=== PATIENT | male | born 1960 ===

== ENCOUNTER 2018-06-20 13:17 | Emergency (ER) | payer OTHER, SELFPAY ==
[2018-06-20] VITALS (42 sets, daily range): BP systolic 138–161; BP diastolic 84–119; PULSE 79–104; RESP 12–53; TEMP 37; O2SAT 95–100
[2018-06-20] MEDS: Normal Saline 1,000 ML 1000 ML IV (13:34)
[2018-06-20 13:37] LABS: Abs Immature Grans 0.01 k/cumm (0.0-0.09); Absolute Basophil Count 0.03 k/cumm (0.0-0.2); Absolute Eosinophil Count 0.13 k/cumm (0.0-0.7); Absolute Lymphocyte Count 1.99 k/cumm (1.2-3.4); Absolute Monocyte Count 0.61 k/cumm (0.11-0.7); Absolute Neutrophil Count 6.17 k/cumm (1.2-6.7); Basophils % 0.3; Eosinophils % 1.5; HGB 13.6 g/dL (13.5-17.5); Immature Grans % 0.1; Lymphocytes % 22.3; Mean Corp. HGB Concentration 32.4 g/dL (32.0-36.0); Mean Corpuscular Hemoglobin 27.8 pg (27.0-33.0); Mean Corpuscular Volume 85.7 fL (80-95); Mean Platelet Volume 10.7 fL (8.0-11.0); Monocytes % 6.8; Platelet Count 138 x1000/uL (130-400); RBC Distribution Width 14.3 % (11.8-14.1); White Blood Cell Count 8.94 k/cumm (4.4-10.8)
[2018-06-20] MEDS: diphenhydrAMINE 50 MG/ML VIAL IVP (13:48)
[2018-06-20] MEDS: Famotidine 20 MG TAB PO (13:49)
[2018-06-20] MEDS: methylPREDNISolone SUCC 125 MG VIAL IVP (13:49)
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
[2018-06-20 13:54] LABS: PTT Activated 24.3 sec (21.0-31.4); Prothrombin Time 10.4 sec (9.3-11.0)
[2018-06-20 14:00] LABS: ALT 62 U/L (12-78); AST 58 U/L (15-37); Albumin 4.3 g/dL (3.4-5.0); Alkaline Phosphatase 227 U/L (46-116); Anion Gap 13.5 mmol/L (3-11); BUN 15 mg/dL (7-18); Bilirubin, Total 0.7 mg/dL (0.2-1.0); CO2 23.5 mmol/L (21.0-32.0); CREATININE 0.75 mg/dL (0.70-1.30); Calcium 8.9 mg/dL (8.5-10.1); Chloride 101 mmol/L (98-107); Glucose 110 mg/dL (70-100); NT-proBNP 60 pg/mL; Potassium 3.7 mmol/L (3.5-5.1); Sodium 138 mmol/L (136-145); Total Protein 8.2 g/dL (6.4-8.2)
[2018-06-20 14:05] LABS: Troponin I < 0.02 ng/mL (0.00-0.06)
[2018-06-20] MEDS: Omnipaque 350 MG/ML 100 ML BTL IJ (14:39)
--- NOTE | 2018-06-20 14:40 | DI.CT_ITS ---
SYMPTOM/DIAGNOSIS: RT HEART STRAIN ON EKG, RECENT SURGERY CT ANGIOGRAPHY CHEST: 06/20/18 CT angiography of the chest was performed with a bolus infusion of 100 cc Omnipaque 350. Images obtained through the upper abdomen show unremarkable appearance of visualized portions of liver, spleen, pancreas, adrenals and kidneys. No mediastinal or hilar adenopathy seen. No evidence of pulmonary embolic disease. Thoracic aorta is of normal diameter and there is no evidence of dissection. The lungs are clear. No pleural effusion seen. Tracheobronchial tree appears intact. CONCLUSION: No evidence of pulmonary embolic disease.
--- NOTE | 2018-06-20 15:09 | DI.VRAD_ITS ---
EXAM: CT Angiography Chest With Contrast EXAM DATE/TIME: 06/20/2018 1:25 PM CLINICAL HISTORY: 57 years old, male; Signs and symptoms; Other: RT heart strain on ekg; Prior surgery; Surgery date: <1 month; Surgery type: C-spine; Patient HX: RT heart strain on ekg, . recent surgery - c-[facility] - 05/2018 TECHNIQUE: Imaging protocol: Axial computed tomographic angiography images of the chest with intravenous contrast using CT angiography protocol. Coronal and sagittal reformatted images were created and reviewed. 3D rendering: MIP reconstructed images were created and reviewed. Radiation optimization: All CT scans at this facility use at least one of these dose optimization techniques: automated exposure control; mA and/or kV adjustment per patient size (includes targeted exams where dose is matched to clinical indication); or iterative reconstruction. Contrast material: OMNI 350 Contrast volume: 75 ml Contrast route: IV COMPARISON: No relevant prior studies available. FINDINGS: Pulmonary arteries: No evidence of pulmonary embolus to the segmental level. Aorta: No aneurysm of the aorta. No dissection of the aorta. Lungs: Bibasilar atelectasis Pleural space: Normal. No pneumothorax. No pleural effusion. Heart: Normal. No cardiomegaly. No pericardial effusion. Gallbladder and bile ducts: Cholecystectomy Lymph nodes: Unremarkable. No enlarged lymph nodes. Bones/joints: Plate and screws in the cervical spine Soft tissues: Unremarkable. IMPRESSION: 1. No evidence of pulmonary embolus to the segmental level. 2. No aneurysm of the aorta. 3. No dissection of the aorta. Dictated and Authenticated by: Yair Chin MD. Ordering:SENAIT Cummings MD
[2018-06-20] MEDS: Lidocaine 2% Viscous 15 ML CUP (15:30)
[2018-06-20] MEDS: Mylanta Suspension 30 ML CUP (15:31)
[2018-06-20] MEDS: Sucralfate 1 GM TAB PO (16:20)
[2018-06-20] MEDS: Acetaminophen 500 MG TAB 1000 MG PO (17:13)
[2018-06-20] MEDS: Ketorolac 30 MG/ML VIAL IVP (17:13)
[2018-06-20] MEDS: Albuterol/Ipratropium 3 ML UPD VIAL UPD (17:13)
[2018-06-20 17:14] LABS: Troponin I < 0.02 ng/mL (0.00-0.06)
== END 2018-06-20 17:50 | disposition home or self-care (01) ==
PROVIDERS: Emergency Provider Student in an Organized Health Care Education/Training Program; PCP Internal Medicine
DX: R07.9 Chest pain, unspecified (principal); I10 Essential (primary) hypertension; Z87.890 Personal history of sex reassignment
CPT/HCPCS: 36415; 71275; 80053; 93005; 96361; 96372; 96375; 99285; 83880; 84443; 84484; 85025; 85610; 85730; 93010; J1200; J1885; J2930; J3490; J7620